=== PATIENT | female | born 1940 | race Caucasian/White ===

== ENCOUNTER → 2020-06-16 | Outpatient (CLI) | payer MEDICARE | END | disposition home or self-care (01) | LOC: SHCH 13:44 | PROVIDERS: ATTEND Internal Medicine Cardiovascular Disease | DX: I87.2 Venous insufficiency (chronic) (peripheral) (principal) | CPT/HCPCS: 93970 ==

== ENCOUNTER → 2021-06-22 | Outpatient (CLI) | payer MEDICARE ==
[~2021-06-22] MED LIST: IOHEXOL 350 MG/ML 100ML INFUS..BTL IV ONE
== END | disposition home or self-care (01) ==
LOC: RAH 08:36
PROVIDERS: ATTEND Internal Medicine Cardiovascular Disease
DX: I28.8 Other diseases of pulmonary vessels (principal); I48.19 Other persistent atrial fibrillation; I51.7 Cardiomegaly
CPT/HCPCS: 71275; Q9967

== ENCOUNTER 2021-07-04 06:47 | Day surgery (SDC) | payer MEDICARE ==
[2021-06-23 14:52] LABS: POTASSIUM 3.7 mmol/L (3.5-5.1)
[2021-06-23 14:53] LABS: INR 1.1 (0.85-1.15); PROTHROMBIN TIME 11.9 SEC (9.6-11.6)
[2021-06-23 14:55] LABS: PARTIAL THROMBOPLASTIN TIME 30.4 SEC (26.3-35.5)
[2021-06-26 10:38] LABS: BASOPHILS % (AUTO) 0.7 % (0.0-5.0); EOSINOPHILS % (AUTO) 2.7 % (0.0-8.0); HEMATOCRIT 42.2 % (36-48); LYMPHOCYTES % (AUTO) 14.2 % (21.0-51.0); MEAN CORPUSCULAR HEMOGLOBIN 32.3 pg (27.0-33.0); MEAN CORPUSCULAR HGB CONC 32.5 g/dL (32.0-36.0); MEAN CORPUSCULAR VOLUME 99.5 fL (79-99); MONOCYTES % (AUTO) 13.3 % (3.0-13.0); NEUTROPHILS % (AUTO) 68.7 % (40.0-77.0); PLATELET COUNT (AUTO) 232 K/uL (130-400); RED BLOOD CELL COUNT(AUTO) 4.24 MIL/uL (4.00-5.50); RED CELL DISTRIBUTION WIDTH 12.4 % (11.0-15.5); WHITE BLOOD COUNT (AUTO) 5.5 K/uL (4.8-10.8)
[2021-07-04] VITALS (17 sets, daily range): BP systolic 135–161; BP diastolic 61–84
[~2021-07-04] VITALS: Ht 167.6 cm; Wt 78.7 kg
[~2021-07-04 06:47] MED LIST changes: +0.9%NACL 1000ML 1,000 ML IV SCH; +ACET-2247 PO; +APIX5TAB PO; +ASPI-1443 PO; +ATOR40TA71 PO; +CALC-1125 PO; +CEPH250T PO; +CYAN250T3 PO; -IOHEXOL 350 MG/ML 100ML INFUS..BTL IV ONE; +MAGN250T35 PO; +METO-408 PO; +MULT-1367 PO; +PRIM50TA23 PO
[2021-07-04 07:20] LABS: POTASSIUM 4.6 mmol/L (3.5-5.1)
[2021-07-04] MEDS ORDERED: 0.9%NACL 1000ML 1,000 ML IV ONE (07:34)
[2021-07-04] MEDS ORDERED: LIDOCAINE HCL 2% VISCOUS 15 ML UDCUP ONE (08:55)
[2021-07-04] MEDS ORDERED: FLUMAZENIL 0.1MG/1ML 5ML VIAL IV ONE (08:55)
[2021-07-04] MEDS ORDERED: MIDAZOLAM HCL 1 MG/ML 2ML VIAL ONE (08:56)
[2021-07-04] MEDS ORDERED: FENTANYL CITRATE PF 50 MCG/1 ML 2ML VIAL ONE (08:56)
[2021-07-04] MEDS ORDERED: NALOXONE HCL 0.4 MG/1 ML ML ONE (08:56)
== END 2021-07-04 11:05 ==
LOC: DAH 06:47
PROVIDERS: ATTEND Internal Medicine Cardiovascular Disease
DX: I48.19 Other persistent atrial fibrillation (principal); I48.91 Unspecified atrial fibrillation; E78.5 Hyperlipidemia, unspecified; Z96.652 Presence of left artificial knee joint; Z79.01 Long term (current) use of anticoagulants; Z79.899 Other long term (current) drug therapy; Z98.890 Other specified postprocedural states
CPT/HCPCS: 36415 ×3; 80048 ×2; 85025; 85610; 85730; 87635; 93005; 93312; A4215; A4216; A4221; A4222; A4223 ×3; A4606; A4663; C9803; J2250; J3010; J7030; J2310; J3490

== ENCOUNTER 2021-08-03 08:48 | Observation (INO) | payer MEDICARE ==
[2021-08-01 12:58] LABS: BASOPHILS % (AUTO) 0.8 % (0.0-5.0); EOSINOPHILS % (AUTO) 3.8 % (0.0-8.0); HEMATOCRIT 41.6 % (36-48); LYMPHOCYTES % (AUTO) 16.4 % (21.0-51.0); MEAN CORPUSCULAR HEMOGLOBIN 32.1 pg (27.0-33.0); MEAN CORPUSCULAR HGB CONC 32.5 g/dL (32.0-36.0); MEAN CORPUSCULAR VOLUME 98.8 fL (79-99); MONOCYTES % (AUTO) 12.8 % (3.0-13.0); PLATELET COUNT (AUTO) 214 K/uL (130-400); RED BLOOD CELL COUNT(AUTO) 4.21 MIL/uL (4.00-5.50); RED CELL DISTRIBUTION WIDTH 12.4 % (11.0-15.5); WHITE BLOOD COUNT (AUTO) 5.1 K/uL (4.8-10.8)
[2021-08-01 13:07] LABS: POTASSIUM 5.1 mmol/L (3.5-5.1)
[2021-08-01 13:14] LABS: INR 1.46 (0.85-1.15); PROTHROMBIN TIME 15.4 SEC (9.6-11.6)
[2021-08-01 13:15] LABS: PARTIAL THROMBOPLASTIN TIME 36.4 SEC (26.3-35.5)
[2021-08-03] VITALS (40 sets, daily range): BP systolic 129–172; BP diastolic 55–91
[~2021-08-03] VITALS: Ht 167.6 cm; Wt 78.6 kg
[~2021-08-03 08:48] MED LIST changes: +0.9% NACL 500ML IV.SOLN 500 ML IV SCH; -0.9%NACL 1000ML 1,000 ML IV SCH; -ACET-2247 PO; +ACET-66 PO; -APIX5TAB PO; +POTA99TA26 PO; +RIVA20TA PO
[2021-08-03] MEDS ORDERED: FLUMAZENIL 0.1MG/1ML 5ML VIAL IV ONE (09:18)
[2021-08-03] MEDS ORDERED: LIDOCAINE HCL 2% VISCOUS 15 ML UDCUP ONE (09:18)
[2021-08-03] MEDS ORDERED: NALOXONE HCL 0.4 MG/1 ML ML ONE (09:19)
[2021-08-03] MEDS ORDERED: FENTANYL CITRATE PF 50 MCG/1 ML 2ML VIAL ONE ×2 (09:19→12:45)
[2021-08-03] MEDS ORDERED: 0.9%NACL 1000ML 1,000 ML IV ONE (09:19)
[2021-08-03] MEDS ORDERED: MIDAZOLAM HCL 1 MG/ML 2ML VIAL ONE ×3 (09:20→13:04)
[2021-08-03] MEDS ORDERED: HEPARIN 1,000 UNIT VIAL ONE (12:29)
[2021-08-03] MEDS ORDERED: LIDOCAINE HCL 400MG/20ML VIAL ONE (12:29)
[2021-08-03] MEDS ORDERED: ISOPROTERENOL HCL 0.2 MG/ML AMP/VIAL/BAG ONE (12:30)
[2021-08-03] MEDS ORDERED: KETAMINE 50MG/ML SYRINGE 50 MG/ML DISP.SYRIN IV ONE (12:41)
[2021-08-03] MEDS ORDERED: ATROPINE 1MG SYG IVP ONE (12:43)
[2021-08-03] MEDS ORDERED: PHENYLEPHRINE HCL 10 MG/ML 1ML VIAL IV ONE (12:43)
[2021-08-03] MEDS ORDERED: SUCCINYLCHOLINE CHLORIDE 20 MG/ML 10 ML VIAL ONE (12:43)
[2021-08-03] MEDS ORDERED: GLYCOPYRROLATE 1 MG/5 ML SYRINGE ONE (12:43)
[2021-08-03] MEDS ORDERED: LIDOCAINE PF 100MG/5ML (2%) SYRINGE 5ML ONE (12:43)
[2021-08-03] MEDS ORDERED: PROPOFOL 10 MG/ML 20ML VIAL IV ONE (12:43)
[2021-08-03] MEDS ORDERED: ONDANSETRON 4MG INJ ONE (12:44)
[2021-08-03] MEDS ORDERED: NEOSTIGMINE 5MG/5ML SYR IV ONE (12:44)
[2021-08-03] MEDS ORDERED: ROCURONIUM 10MG/1ML SYR 10 MG/ML ML ONE (12:44)
[2021-08-03] MEDS ORDERED: HEPARIN 10,000 UNIT/10ML (1,000 UNIT/ML) VIAL ONE ×2 (13:08→14:58)
[2021-08-03] MEDS ORDERED: ROCURONIUM BROMIDE 10MG/1ML 5ML VL ONE (15:45)
[2021-08-03] MEDS ORDERED: PROTAMINE SULFATE 10 MG/ML 25ML VIAL IV ONE (16:27)
[2021-08-03] MEDS ORDERED: ACETAMINOPHEN 500 MG TABLET PO SCH (18:00)
[2021-08-03] MEDS: METOPROLOL SUCCINATE 50 MG TAB.SR.24H PO SCH (20:37)
[2021-08-03] MEDS ORDERED: ASPIRIN 81 MG EC TAB PO SCH (21:00)
[2021-08-03] MEDS ORDERED: NON-FORMULARY MEDICATION 1 EACH (Metoprolol Succinate 25 MG) PO SCH (21:00)
[2021-08-03] MEDS ORDERED: ATORVASTATIN 40 MG TABLET PO SCH (21:00)
[2021-08-03] MEDS ORDERED: PANTOPRAZOLE 40 MG TAB DR PO SCH (21:00)
[2021-08-03] MEDS ORDERED: APIXABAN 5 MG TABLET PO ONE (23:00)
[2021-08-03] MEDS: SUCRALFATE 1 GM TABLET PO SCH (23:59)
[2021-08-04 00:29] VITALS: BP 93/49
[2021-08-04 04:05] VITALS: BP 117/56
[2021-08-04] MEDS: SUCRALFATE 1 GM TABLET PO SCH (05:48)
[2021-08-04] MEDS ORDERED: ACETAMINOPHEN 500 MG TABLET PO PRN (06:30)
[2021-08-04 06:34] VITALS: BP 122/73
[2021-08-04] MEDS: PRIMIDONE 50 MG TAB PO SCH ×2 (08:09→08:27)
[2021-08-04] MEDS: METOPROLOL SUCCINATE 50 MG TAB.SR.24H PO SCH (08:12)
[2021-08-04] MEDS ORDERED: NON-FORMULARY MEDICATION 1 EACH (Multivitamin 1 EACH) PO SCH (09:00)
[2021-08-04] MEDS ORDERED: HOME MEDICATION 1 EACH PO SCH (09:00)
[2021-08-04] MEDS ORDERED: PANTOPRAZOLE 40 MG TAB DR PO SCH (09:00)
[2021-08-04] MEDS ORDERED: CYANOCOBALAMIN 250 MCG PO SCH (09:00)
[2021-08-04] MEDS ORDERED: CEPHALEXIN 250 MG CAPSULE PO SCH (09:00)
[2021-08-04] MEDS ORDERED: MULTIVITAMIN TABLET PO SCH (09:00)
[2021-08-04] MEDS ORDERED: CEPHALEXIN 250 MG PO SCH (09:00)
[2021-08-04] MEDS ORDERED: CALCIUM CARB 500MG PO SCH (09:00)
[2021-08-04] MEDS ORDERED: PANT40TA PO (10:22)
[2021-08-04] MEDS ORDERED: SUCR1ORA15 PO (10:22)
[2021-08-04 11:51] VITALS: BP 127/61
[2021-08-04] MEDS ORDERED: RIVAROXABAN 20 MG TABLET PO SCH (12:00)
[2021-08-05] MEDS ORDERED: (Magnesium 250 MG) PO SCH (09:00)
== END 2021-08-04 11:58 | disposition home or self-care (01) ==
LOC: DAH 08:48 → DAHIP 08:49 → 2DH 19:20 → EDSTATUS 08-04 07:00
PROVIDERS: ADMIT Internal Medicine Cardiovascular Disease; ATTEND Internal Medicine Cardiovascular Disease
DX: I48.19 Other persistent atrial fibrillation (principal); I10 Essential (primary) hypertension; Z79.01 Long term (current) use of anticoagulants; Z79.899 Other long term (current) drug therapy
CPT/HCPCS: 36415; 80048; 85025; 85610; 85730; 93005 ×2; 93312; 93622; 93623; 93656; 93657 ×4; A4215 ×2; A4216; A4221; A4222; A4223 ×3; A4344; A4606; A4649 ×2; A4663; A7002; C1730 ×2; C1731; C1732; C1893 ×2; C1894 ×5; G0378 ×18; J0330; J0461; J1644 ×4; J2001; J2250 ×2; J2370; J2405; J2704; J2710; J2720; J3010 ×2; J3490 ×5; J7030; J2310

== ENCOUNTER 2021-08-05 02:23 | Emergency (ER) | payer MEDICARE ==
[~2021-08-05] VITALS: Ht 167.6 cm; Wt 78.5 kg
[~2021-08-05 02:23] MED LIST changes: -0.9% NACL 500ML IV.SOLN 500 ML IV SCH; +PANT40TA PO; +SUCR1ORA15 PO
[2021-08-05 02:45] LABS: BASOPHILS % (AUTO) 0.2 % (0.0-5.0); EOSINOPHILS % (AUTO) 1.2 % (0.0-8.0); HEMATOCRIT 35.5 % (36-48); MEAN CORPUSCULAR HEMOGLOBIN 32.7 pg (27.0-33.0); MEAN CORPUSCULAR HGB CONC 32.7 g/dL (32.0-36.0); MONOCYTES % (AUTO) 9.6 % (3.0-13.0); NEUTROPHILS % (AUTO) 79.8 % (40.0-77.0); PLATELET COUNT (AUTO) 183 K/uL (130-400); RED BLOOD CELL COUNT(AUTO) 3.55 MIL/uL (4.00-5.50); RED CELL DISTRIBUTION WIDTH 12.9 % (11.0-15.5); WHITE BLOOD COUNT (AUTO) 8.6 K/uL (4.8-10.8)
[2021-08-05 02:54] LABS: POTASSIUM 3.6 mmol/L (3.5-5.1)
[2021-08-05 03:03] LABS: BILIRUBIN,TOTAL 0.4 mg/dL (0.2-1.0)
[2021-08-05] MEDS ORDERED: ACETAMINOPHEN 500 MG TABLET PO ONE (03:30)
[2021-08-05] MEDS ORDERED: SUCRALFATE 1 GM TABLET PO SCH (03:30)
[2021-08-05 04:05] LABS: B-TYPE NATRIURETIC PEPTIDE 126 pg/mL (0-100)
[2021-08-05 05:02] VITALS: BP 141/64
== END 2021-08-05 05:36 | disposition home or self-care (01) ==
LOC: EDH 02:23
DX: R07.89 Other chest pain (principal); I48.91 Unspecified atrial fibrillation; I10 Essential (primary) hypertension; Z88.5 Allergy status to narcotic agent; Z88.8 Allergy status to other drugs, medicaments and biological substances; Z79.899 Other long term (current) drug therapy; Z79.82 Long term (current) use of aspirin; Z79.01 Long term (current) use of anticoagulants; Z98.890 Other specified postprocedural states
CPT/HCPCS: 36415; 71045; 80053; 83880; 84484; 85025; 85378; 93005

== ENCOUNTER 2022-06-25 13:14 | Emergency (ER) | payer MEDICARE ==
[~2022-06-25] VITALS: Ht 167.6 cm; Wt 71.7 kg
[2022-06-25 14:26] LABS: BASOPHILS % (AUTO) 0.5 % (0.0-5.0); EOSINOPHILS % (AUTO) 2.4 % (0.0-8.0); MEAN CORPUSCULAR HEMOGLOBIN 29.3 pg (27.0-33.0); MEAN CORPUSCULAR HGB CONC 32.1 g/dL (32.0-36.0); MEAN CORPUSCULAR VOLUME 91.5 fL (79-99); MONOCYTES % (AUTO) 9.6 % (3.0-13.0); NEUTROPHILS % (AUTO) 71.2 % (40.0-77.0); PLATELET COUNT (AUTO) 258 K/uL (130-400); RED BLOOD CELL COUNT(AUTO) 4.26 MIL/uL (4.00-5.50); RED CELL DISTRIBUTION WIDTH 14.8 % (11.0-15.5); WHITE BLOOD COUNT (AUTO) 6.3 K/uL (4.8-10.8)
[2022-06-25 14:29] LABS: APPEARANCE,URINE CLOUDY (CLEAR); BILIRUBIN,URINE NEGATIVE (NEGATIVE); COLOR,URINE LIGHT-ORANGE (YELLOW); GLUCOSE, URINE (UA) NEGATIVE (NEGATIVE); KETONES,URINE NEGATIVE (NEGATIVE); LEUKOCYTE ESTERASE ,URINE 500 Leu/uL (NEGATIVE); NITRATE,URINE NEGATIVE (NEGATIVE); OCCULT BLOOD,URINE LARGE (NEGATIVE); PROTEIN,URINE 70 mg/dL (NEGATIVE); UROBILINOGEN,URINE 0.2 mg/dL (0.2-1.0)
[2022-06-25 14:47] LABS: BACTERIA,URINE MOD /HPF (None Seen); MUCUS,URINE RARE LPF (None Seen); RBC,URINE TNTC /HPF (0-1); WBC,URINE 26-50 /HPF (0-1); YEAST,URINE BUDDING FEW /HPF (None Seen)
[2022-06-25 15:36] LABS: POTASSIUM 4.1 mmol/L (3.5-5.1)
[2022-06-25 15:41] LABS: ALBUMIN 4.3 g/dL (3.5-5.0); TOTAL PROTEIN, SERUM 7.7 g/dL (6.0-8.3)
[2022-06-25] MEDS ORDERED: KETOROLAC 15MG/ML VIAL (15MG/ML) ONE (16:55)
[2022-06-25] MEDS ORDERED: CEFTRIAXONE 1G VIAL ONE (16:55)
[2022-06-25] MEDS ORDERED: 0.9% NACL 500ML IV.SOLN 500 ML IV ONE ×2 (16:56→17:00)
[2022-06-25] MEDS ORDERED: CEFTRIAXONE 1G VIAL IVP ONE (17:00)
[2022-06-25] MEDS ORDERED: KETOROLAC 15MG/ML VIAL (15MG/ML) IV ONE (17:00)
[2022-06-25 18:16] VITALS: BP 144/78
== END 2022-06-25 18:40 | disposition home or self-care (01) ==
LOC: EDH 13:14
DX: N39.0 Urinary tract infection, site not specified (principal); I10 Essential (primary) hypertension; I48.91 Unspecified atrial fibrillation; Z88.5 Allergy status to narcotic agent; Z88.8 Allergy status to other drugs, medicaments and biological substances; Z88.6 Allergy status to analgesic agent; Z79.899 Other long term (current) drug therapy
CPT/HCPCS: 99285; 74176; 96374; 96375; 80053; 85025; 87077; 87088; 87186; 81001; 36415; J7040; J0696; J1885